=== PATIENT | male | born 1980 | race Caucasian/White ===

== ENCOUNTER 2016-08-25 13:30 | Emergency (ER) | payer OTHER ==
[2016-08-25] MEDS ORDERED: IBUPROFEN 600 MG TABLET PO STA (14:07)
[2016-08-25] MEDS ORDERED: ACETAMINOPHEN 325 MG TABLET PO STA (14:08)
[2016-08-25] MEDS ORDERED: ACETAMINOPHEN 325 MG TABLET PO ONE (14:09)
[2016-08-25] MEDS ORDERED: IBUPROFEN 600 MG TABLET PO ONE (14:09)
== END 2016-08-25 15:04 | disposition home or self-care (01) ==
DX: S06.0X0A Concussion without loss of consciousness, initial encounter (principal); V43.52XA Car driver injured in collision with other type car in traffic accident, initial encounter; G43.909 Migraine, unspecified, not intractable, without status migrainosus; F17.200 Nicotine dependence, unspecified, uncomplicated
CPT/HCPCS: 70450; 99283; 99284; A9270

== ENCOUNTER 2018-06-20 12:52 | Outpatient (CLI) | payer OTHER | END 2018-06-20 12:53 | disposition home or self-care (01) | LOC: SC 12:52 | PROVIDERS: ATTEND Internal Medicine Pulmonary Disease | DX: G47.10 Hypersomnia, unspecified (principal); R41.89 Other symptoms and signs involving cognitive functions and awareness; R51 Headache; R06.83 Snoring; F51.3 Sleepwalking [somnambulism] | CPT/HCPCS: 99203; 99212 ==

== ENCOUNTER 2018-07-14 20:29 | Outpatient (CLI) | payer OTHER | END 2018-07-14 20:30 | disposition home or self-care (01) | LOC: SC 20:29 | PROVIDERS: ATTEND Internal Medicine Pulmonary Disease | DX: G47.33 Obstructive sleep apnea (adult) (pediatric) (principal) | CPT/HCPCS: 95810 ==

== ENCOUNTER 2018-08-24 12:46 | Outpatient (CLI) | payer OTHER | END 2018-08-24 12:47 | disposition home or self-care (01) | LOC: SC 12:46 | PROVIDERS: ATTEND Nurse Practitioner Family | DX: G47.33 Obstructive sleep apnea (adult) (pediatric) (principal) | CPT/HCPCS: 99212; 99214 ==

== ENCOUNTER 2018-11-28 09:56 | Outpatient (CLI) | payer OTHER | END 2018-11-28 09:57 | disposition home or self-care (01) | LOC: SC 09:56 | PROVIDERS: ATTEND Nurse Practitioner Family | DX: G47.33 Obstructive sleep apnea (adult) (pediatric) (principal) | CPT/HCPCS: 99212; 99215 ==

== ENCOUNTER 2018-11-30 11:57 | Outpatient (CLI) | payer OTHER ==
[2018-11-30] MEDS ORDERED: IOTHALAMATE MEGLUMINE 50 ML VIAL ONE (12:09)
[2018-11-30] MEDS ORDERED: BUFFERED LIDOCAINE 10 ML SYRINGE ONE (12:09)
[2018-11-30] MEDS ORDERED: GADOPENTETATE DIMEGLUMINE 5 ML VIAL IVP ONE ×3 (12:09→14:58)
--- NOTE | 2018-11-30 14:55 | XRAY Report ---
Reason: OTHER INSTABILITY,RIGHT SHOULDER Procedure Date: 11/30/2018 Accession Number: [id number] / [id number] Procedure: FL - Arthrogram Needle Placement CPT Code: FULL RESULT: EXAM: RIGHT SHOULDER ARTHROGRAPHIC INJECTION WITH FLUOROSCOPIC GUIDANCE EXAM DATE: 11/30/2018 01:20 PM. CLINICAL HISTORY: Pain and INSTABILITY,RIGHT SHOULDER. History of prior surgery COMPARISON: None. TECHNIQUE: The risks, benefits, and alternatives of the procedure were discussed with the patient. All questions were answered. Written and verbal consent were obtained. The right glenohumeral joint was marked under fluoroscopy and prepped and draped in a sterile manner. Local anesthesia was performed with 1% lidocaine. A 22-gauge needle was then inserted into the glenohumeral joint. 10 mL of a dilute gadolinium solution was then injected. The needle was removed without immediate complication. Other: None. Fluoroscopy Time: 52 seconds . Number of Images: 3. FINDINGS: Bones and joints: No fracture or subluxation. Soft tissue calcification superior to the humeral head is consistent with calcific tendinitis. Injection: Fluoroscopic images demonstrate needle placement and contrast in the glenohumeral joint. No contrast extravasation outside of the glenohumeral joint. IMPRESSION: Successful fluoroscopically guided arthrographic injection of the right shoulder. RADIA
[2018-11-30] MEDS ORDERED: BUFFERED LIDOCAINE 10 ML SYRINGE IU ONE (14:58)
--- NOTE | 2018-12-04 16:57 | MRI Report ---
Reason: OTHER INSTABILITY,RIGHT SHOULDER Procedure Date: 11/30/2018 Accession Number: [id number] / [id number] Procedure: MRI - Arthrogram Shoulder RT CPT Code: FULL RESULT: EXAM: RIGHT SHOULDER MRI ARTHROGRAM WITH CONTRAST EXAM DATE: 11/30/2018 01:51 PM. CLINICAL HISTORY: Shoulder pain and limited range of motion after fall. History of shoulder surgery 10 years ago. COMPARISON: None. TECHNIQUE: Multiplanar, multisequence T1-weighted and fluid-sensitive sequences of the shoulder after an arthrographic injection of dilute gadolinium, dictated under a separate exam. Other: None. FINDINGS: Acromioclavicular Region: The acromion is type II. Acromioplasty has been performed. The acromioclavicular joint is unremarkable. The coracoacromial and coracoclavicular ligaments are intact. Contrast is present in the subacromial/subdeltoid bursa reflecting full-thickness tear of the supraspinatus tendon which will be discussed below. Glenohumeral Region: No subluxation. There is moderate glenohumeral synovitis which is most apparent in the axillary recess. No apparent articular body. The articular cartilage is unremarkable. No capsular thickening or tear. Bone Marrow: Suture anchors are present in the anterior glenoid consistent with sequela of labral repair. The medial extent of the inferior most of the 3 anchors projects slightly beyond the anterior cortex of the anterior glenoid, which may be its expected position. No fracture. No bony lesion. Labrum: The anterior-inferior labrum is diminutive, potentially sequela of old labral injury; however, there appears to be extension of low signal tissue which is contiguous with the inferior labrum laterally from the inferior labrum suspicious for displaced labral tissue which originates from the anterior-inferior labrum. This is best seen on the sagittal images on series 901 images 6 and 7 and series 701 image 11. This is suspicious for residual or recurrent anterior-inferior labral tear. The remainder of the labrum is intact. Biceps Tendon: The long head of the biceps tendon and biceps era are intact. Musculature/Rotator Cuff: There is a full-thickness tear of the distal and anterior supraspinatus at the greater tuberosity insertion. Further posteriorly there is partial thickness articular surface tearing of the distal tendon but no further full-thickness tear. The full-thickness component of the tear involves the anterior approximately 15-20% of the tendon. The infraspinatus is intact. The teres minor is intact. The subscapularis is intact. No rotator cuff muscle belly atrophy or edema. Other: The subcutaneous tissues are unremarkable. IMPRESSION: 1. Small full-thickness tear at the insertion of the distal and anterior supraspinatus on the greater tuberosity with partial thickness articular surface tearing of the distal supraspinatus tendon further posteriorly. The remainder of the rotator cuff is intact. 2. Postsurgical changes of labral repair. The anterior-inferior labrum is diminutive, and there is extension of low signal tissue laterally and inferiorly from the inferior labrum which may reflect displaced labral tissue due to residual or recurrent anterior-inferior labral tear. The remainder of the labrum is unremarkable. 3. Moderate glenohumeral synovitis. RADIA
== END 2018-11-30 11:58 | disposition home or self-care (01) ==
LOC: DI 11:57
PROVIDERS: ATTEND Orthopaedic Surgery
DX: M25.311 Other instability, right shoulder (principal); M75.101 Unspecified rotator cuff tear or rupture of right shoulder, not specified as traumatic; M65.811 Other synovitis and tenosynovitis, right shoulder
CPT/HCPCS: 23350; 73222; 77002; Q9961

== ENCOUNTER 2019-01-25 08:22 | Outpatient (CLI) | payer OTHER ==
[2019-01-25 09:48] VITALS: BP 96/60
--- NOTE | 2019-01-25 09:48 | SLEEP CARE CONSULTATION ---
Information from patient questionnaire entered by Delfina Lal. I have reviewed and concur with the information entered by Delfina Lal. This document represents the service I personally performed and the decisions made by me, Marisela Aviles, RN, MSN, [employer]. History of Present Illness Previous diagnosis: Mild, Obstructive Sleep Apnea-Hypopnea Syndrome AHI: 7.6 Reason for CPAP/BiPAP follow up: one month Equipment type: CPAP Equipment obtained from: [employer] Mask style: Nasal (Dreamwear nasal cushion) Mask brand: Respironics Backup mask available: Yes (full face mask) Last cushion change: a couple days ago HPI additional information: Review of last visit notes, the new mask and pressure adjustment made CPAP much easier to use through the night. He did not need the chinstrap ordered. The condensation is resolved with adjustments. CPAP Compliance Data - Data Reviewed with Patient Average duration of nightly device use: 5.5 Compliance rate %: 66.7 Current pressure setting (cmH2O): 8 Humidity settin Heated hose settin Average residual AHI: 2.2 Average large leak: 25 secs Subjective Missed days of use due to: reports: travel (due to lack of access to device where staying), other ( DET and not accessible to use. ) Patient concerns: denies: aerophagia, mask discomfort, air blowing in eyes, mask leak noise, condensation in mask/hose, nasal congestion, dry mouth, nose, thro at, epistaxis Observed to snore while using device: No Current pressure setting perceived as: comfortable On therapy, patient: reports: sleeping better, awakening more refreshed, being more awake and alert during the day, more rested overall. denies: drowsiness while driving Initial [place] Sleepiness Scale score: 13 Current [place] Sleepiness Scale score: 7 Allergies and Home Medications Known drug allergies: Yes (iodine contrast dye) Home medication list reviewed: Yes Allergy and home medication list: unknown medication for Gerd daily Review of Systems Review of systems same as previous: No (Surgery planned for right shoulder 02-10-19) Physical Exam Blood Pressure: 96/60 (no fluids yet today) Cuff size: long Heart Rate: 66 (apical regular) O2 Saturation: 96 Height: 5 ft 7.5 in Weight (kg): 88.088 kg (with boots and fatigues) Weight change since last visit: 2 pounds gained after vacation Body Mass Index: 29.9 BMI Classification: Overweight Impression and Plan 1. Obstructive Sleep Apnea-Hypopnea Syndrome, mild, with better treatment compliance and good apnea control. On CPAP therapy, the patient has better sleep quality and is more rested overall. He has improved his compliance from 36.7% to 66.7%. The pressure change and new mask style are much more comfortable to use but he had reduced use with travel both for vacation and DET. He can use the full face mask given at set up if nasal congestion. Patient met insurance compliance goals from 11-28-18 to 12-27-18 with 86.7% complaince of more than 4 hours of sleep a night. Patient is also advised to use CPAP not just for compliance goals but with all sleep for maximum benefit of treatment and to get sufficient sleep of minimum of 7 hours. Most people require 7-9 hours of sleep for optimal mental and physical function. Less than 6 hours of sleep consistently will increase health risks. He does feel more rested when he gets more sleep. For planned surgery next month, he is advised to take his CPAP for use in recovery and any sleep if stays over. For supply questions, I gave him a copy of supply replacement schedule and advised to change mask cushion regularly to maintain seal and comfort. Patient's apnea severity and rationale for treatment to reduce apnea, improve sleep quality and reduce cardiovascular and cerebrovascular events was reviewed. I also reviewed the benefit of consistent device use of CPAP for hypertension, gastric reflux. Patient also advised of the importance of adequate hydration to his blood pressure which was low normal range today and to start the day with a full glass of water before his coffee which is a diuretic. * Continue CPAP pressure at 8cmH2O * Use CPAP with all sleep. * Obtain more sleep. * Take CPAP to surgery. * Increase morning fluids * Notify me if snoring with mask or feeling that the pressure is too much or too little * Attempt to lose weight * Return for follow up in 3 months , or sooner if concerns arise I spent 100% of this 30 minute visit face to face with the patient with greater than 50% of this was spent time counseling the patient and coordination of care.
== END 2019-01-25 08:23 | disposition home or self-care (01) ==
LOC: SC 08:22
PROVIDERS: ATTEND Nurse Practitioner Family
DX: G47.33 Obstructive sleep apnea (adult) (pediatric) (principal)
CPT/HCPCS: 99212; 99214

== ENCOUNTER 2019-03-10 06:09 | Day surgery (SDC) | payer OTHER ==
[2019-03-10] MEDS ORDERED: cefTRIAXone 2 GM VIAL ONE (06:32)
--- NOTE | 2019-03-10 07:12 | ANESTHESIA ---
Pre-Anesthesia VS, & Labs - Diagnosis right shoulder rotator cuff tear, - Procedure Shoulder Arthroscopy, Rotator cuff repair Vital Signs: Temp Pulse Resp BP Pulse Ox 37.6 C H 80 16 110/81 H 96 03/10/19 06:41 03/10/19 06:41 03/10/19 06:41 03/10/19 06:41 03/10/19 06:41 Height 5 ft 8 in Weight (kg) 81.19 kg Body Mass Index 27.3 - NPO >8 hours Home Medications and Allergies Home Medications: Ambulatory Orders Rabeprazole Sodium [Aciphex] 20 mg PO 02/28/19 Rabeprazole Sodium [Aciphex] 20 mg PO 02/28/19 Allergies/Adverse Reactions: Allergies Allergy/AdvReac Type Severity Reaction Status Date / Time cat dander Allergy Respiratory Verified 03/10/19 07:13 iodine Allergy Rash Verified 03/10/19 06:51 shellfish derived Allergy Hives Verified 02/28/19 15:27 Anes History & Medical History - Anesthetic History Anesthesia Complications: reports: No previous complications - Medical History Cardiovascular: reports: None Pulmonary: reports: None Gastrointestinal: reports: GERD Urinary: reports: None Musculoskeletal: reports: Other Endocrine/Autoimmune: reports: None Skin: reports: None Smoking Status: Former smoker (quit one month ago) - Surgical History Orthopedic: Shoulder arthroplasty Exam General: Alert Dental: WNL Mouth Opening: Greater than 4 Fingerbreadths Mallampati classification: III Thyromental Distance: greater than 6 cm Respiratory: Lungs clear Cardiovascular: Regular rate, Normal S1, Normal S2 Mental/Cognitive Status: Alert/Oriented X3 Plan Anesthesia Type: General, Interscalene Block Consent for Procedure(s) Verified and Reviewed: Yes Code Status: Attempt Resuscitation ASA classification: 2-Mild systemic disease Is this case an emergency?: No
[2019-03-10] MEDS ORDERED: LACTATED RINGERS 1,000 ML IV ONE ×2 (07:20→12:50)
[2019-03-10] MEDS ORDERED: fentaNYL 250 MCG/5 ML VIAL IVP ONE (07:30)
[2019-03-10] MEDS ORDERED: PROPOFOL 200 MG/20 ML VIAL IVP ONE (07:30)
[2019-03-10] MEDS ORDERED: ACETAMINOPHEN 1,000 MG/100 ML 100 ML IV ONE (07:30)
[2019-03-10] MEDS ORDERED: MIDAZOLAM 2 MG/2 ML VIAL IVP ONE (07:30)
[2019-03-10] MEDS ORDERED: fentaNYL 100 MCG/2 ML VIAL IVP ONE (07:30)
[2019-03-10] MEDS ORDERED: ROCURONIUM 50 MG/5 ML VIAL IVP ONE (07:30)
[2019-03-10] MEDS ORDERED: DEXAMETHASONE 4 MG/ML VIAL IVP ONE (07:30)
[2019-03-10] MEDS ORDERED: EPINEPHrine 1 MG/ML AMP ONE (08:10)
[2019-03-10] MEDS ORDERED: EPINEPHrine 1 MG/ML AMP IR ONE (08:20)
[2019-03-10] MEDS ORDERED: ONDANSETRON 4 MG/2 ML VIAL IVP ONE (12:00)
[2019-03-10] MEDS ORDERED: KETOROLAC 30 MG/ML VIAL IVP ONE (12:00)
--- NOTE | 2019-03-10 13:14 | OPERATIVE REPORT ---
Operative Report - Other Other Information/Narrative: Date of Surgery: 10 March 2019 Pre-Op Diagnosis: Right shoulder instability. Right shoulder ALPSA lesion. Right shoulder supraspinatus tear. Right shoulder biceps tendinitis. Procedures: -Right shoulder arthroscopic labral repair with capsulorrhaphy (Bankart Repair) -Right shoulder mini open rotator cuff repair (Double row subraspinatus) -Right shoulder mini open biceps tenodesis Postop Diagnosis: Same Primary Surgeon: Prateek Stewart Secondary Surgeon: Lorenzo Montesinos Complications: None EBL: 50 cc IMPLANTS: Arthrex knotless suture tack x4 Arthrex corkscrew x2 Arthrex swivel lock x2 Arthrex fiber tack x1 POSTOPERATIVE PLAN: 0-2 weeks-Sling at all times. Pendulum exercises 5 times per day. 2-6 weeks-Passive range of motion with the following limits: FF to 120, ER to 30, abduction to 90 6-12 weeks-Active range of motion in all planes without limitation. No strengthening 12-16 weeks-Gradual strengthening 16 weeks and beyond-gradually introduce dynamic activities EXAMINATION UNDER ANESTHESIA: ROM: Full Anterior load and shift: Grade 2 instability Posterior load and shift: Normal Inferior sulcus: Negative ARTHROSCOPIC FINDINGS: Rotator interval: Injected synovium Biceps tendon & SLAP: Frayed biceps insertion with tendinopathy. Echo synovitis was seen in the groove Subscapularis: Intact Rotator Cuff: Near full-thickness supraspinatus tear that was completed and repaired. Infraspinatus intact. There was calcifications in the supraspinatus that were removed. HAGL: Normal Labrum: ALPSA lesion that was chronic and healed to the medial glenoid. There is a small ossified portion of the labrum at 5:00 which was mobilized and repaired as well Glenoid Cartilage: Grade 1 changes with some grade 2 Humeral Head Cartilage: Normal Loose bodies: I look for loose bodies in the subscapularis recess and inferiorly but I was unable to find any. INDICATION FOR SURGERY: 38-year-old male who met a shoulder dislocation 10 years ago that was repaired with 2 anchors at 3:00 and 2:00 on the glenoid. He reports a relatively normal shoulder function in the interval 10 years until he dislocated after a fall at [employer]. On imaging there was a chronic appearing labral tear with medialization of the capsule as well as a rotator cuff tear in the supraspinatus with calcifications. He was indicated for surgery to restore stability and treat his full-thickness rotator cuff tear. He additionally had biceps tendon symptoms. Nonoperative managment failed to resolve symptoms. The risks, benefits, and alternatives were discussed. Risks included pain, bleeding, infection, damage to nearby structures, lack of symptom relief, implant complications, stiffness, need for further surgeries, DVT, PE, stroke, and even . He signed a written consent form. PROCEDURE IN DETAIL: The patient was met in the preoperative holding on the day of the procedure. Operative extremity was signed. Consent was verified. He desired to proceed. Regional anesthesia was obtained in the preoperative area. They were brought to the operating room and surrendered to anesthesia. Once general anesthesia was obtained they were placed in the lateral decubitus position with the operative side up. An axillary roll was placed and all bony prominences were well-padded. They were then prepped and draped in the standard sterile fashion. A surgical timeout was held to confirm the patient procedure, identity, procedure, laterality, allergies, images, and antibiotics. All were in agreement we proceeded. Balanced suspension was applied and a standard diagnostic arthroscopy was performed utilizing posterior and anterior superior portal sites. The anterior superior portal site was created under direct visualization. The findings of the diagnostic arthroscopy can be found above. A mid glenoid portal was then created under direct visualization bordering the subscapularis tendon. I then used a combination of high and low angled elevators to free the medialized and healed capsular tissue off of the glenoid until subscapularis muscle fibers could be seen. There is a small ossified portion of the labrum around 5:00 and this was freed. The labrum and capsule was freed from 5:00 up until the sub- labral foramen at the level of subscapularis.. I then used to the pineapple rasp to finalize my release and abraded the bone to a bleeding bed. A sucker shaver was placed in the interval to debride any loose tissue and further abrade the glenoid neck. Any loose cartilage was debrided at that time. I then established a percutaneous 7:00 portal utilizing the Arthrex system. I then placed an anchor at the 6 o'clock position on the border of the glenoid. In the process of passing the sutures the anchor was found to be defective and another anchor was placed slightly more on the clock face at the 6 o'clock position without issue. The suture was passed using an appropriate 45 degree suture lasso. The labrum was secured using knotless technique. Appropriate tension was confirmed with a probe and the excess suture was cut. Using the same technique additional anchors were placed at 5:00, 4:00, and 3:00 positions. The 3:00 anchor was at the same level of his prior most inferior anchor. Proper capsular tension was restored and a labral bumper was recreated. Balanced suspension was then released and final images were taken showing the humeral head centered in the glenoid. I then removed lateral traction on the arm and abducted it more fully and this opened up the view towards the rotator cuff. From inside the joint I then placed a spinal needle in the anterolateral portal site and I did identified the near complete thickness tear. I then brought an 11 blade in through that incision and completed the tear directly off the bone. A shaver was then used to take the final fibers off from the anterior and posterior borders. I took care to keep the infraspinatus intact. The instruments and cannula were then removed from the glenohumeral joint. The scope trocar was placed in the posterior portal and the acromion was felt. It was then inserted just under the acromion scraping along the bone until the CA ligament was felt. The scope trocar was then brought just lateral to the CA ligament and out the anterior incision. The cannula was then brought over the scope trocar arthroscope were inserted. The arthroscope was backed up until the shaver and arthroscope in the subacromial space. I then systemically debrided the bursa using a sucker shaver and radiofrequency ablation wand. An anterolateral incision was made and the bursectomy and decompression was completed through the lateral incision. All soft tissue was debrided from the underside of the acromion and the posterior edge of the CA ligament was lifted. Care was taken to keep the deltoid fascia intact. The rotator cuff tear was the n better visualized. Calcifications were found on the edge of the tear and these were removed with a shaver, biter, and grasper. Satisfied with my preparation of the cuff I then moved to the open portion of the case The anterolateral portal site was extended superiorly and inferiorly stopping 5 cm distal to the acromion edge. The deltoid fascia was identified and split in line with its fibers. The deep deltoid fascia was also split retractors were placed. Bursectomy was then completed. I identified the cuff tear and visualize mobilization using a cuff grasper, it easily reduced to the footprint. I then prepared the footprint with a rasp and rondure ensuring to take off all rough edges and soft tissue. At bed of bleeding bone was then seen. I then placed 2 swivel lock anchors just off the articular margin at man's angle. Scorpion was then used to sequentially pass the 8 sutures from front to back with a good, even spread. I then pulled on the sutures to reduce the cuff and noted that there was a small dog ear posteriorly. Sutures were then tied from anterior to posterior and the cuff reduced nicely. A fiber link was placed into the posterior dog ear. I then took one suture from each not and passed them into a swivel lock anchor for the lateral row. The lateral row was placed 1 cm beyond the cuff tissue. Each suture was tightened individually prior to placing the anchors and excellent compression was found with complete reduction of the dog ear. I internally and externally rotated the arm and found the cuff to be very well fixed. I then irrigated this wound and closed the superficial deltoid fascia with 0 Vicryl in the dermis with 2-0 Vicryl. A 5 cm incision was made near the axillary fold centered over the pectoralis major tendon. Electrocautery was used to obtain hemostasis. The fascia was opened with dissection scissors. Blunt digital dissection was used to identify the intertubercular groove just under the pectoralis major tendon. The long head of the biceps tendon was visualized within this interval. The short head of the biceps was retracted with my finger and the right angle was used to deliver the tendon of the long head of the biceps out of the wound. A ascencio elevator was then used to debride all synovial tissue from the intertubercular groove. A fibertack was placed high within the groove. Both limbs of the fibertack were pulled on and it was well fixed. I then whipstitched the biceps tendon starting 2 cm proximal to the musculotendinous junction down to the musculotendinous junction and back up to the same 2 cm location with a single limb of the suture tack. The other suture was placed once through the tendon at the 2 cm location. I then cut all excess tendon off. The suture limb that was passed the single time was then pulled on and this reduced the tendon nicely into the groove. The elbow was fully straightened and there was no excess tension on the repair site. I then tied 7 reverse half hitches alternating to secure the tendon in its place. The wound was then irrigated copiously. And closed with 2-0 Vicryl in the dermis and running Monocryl in the skin The incisions and portal sites were then closed with 3-0 Monocryl buried. Mastisol and Steri-Strips were applied. A sterile dressing and a sling was applied. He was awakened and transferred to the recovery room.
[2019-03-10 14:47] VITALS: BP 121/74
== END 2019-03-10 06:10 | disposition home or self-care (01) ==
LOC: SDS 06:09
PROVIDERS: ATTEND Orthopaedic Surgery
PROC: 0LQ10ZZ Repair Right Shoulder Tendon, Open Approach (ICD-10-PCS; 2019-03-10)
PROC: 0RHJ04Z Insertion of Internal Fixation Device into Right Shoulder Joint, Open Approach (ICD-10-PCS; 2019-03-10)
PROC: 0LS10ZZ Reposition Right Shoulder Tendon, Open Approach (ICD-10-PCS; 2019-03-10)
PROC: 0RQJ4ZZ Repair Right Shoulder Joint, Percutaneous Endoscopic Approach (ICD-10-PCS; principal; 2019-03-10 07:30)
DX: S46.011A Strain of muscle(s) and tendon(s) of the rotator cuff of right shoulder, initial encounter (principal); M75.21 Bicipital tendinitis, right shoulder; M25.311 Other instability, right shoulder; S43.491A Other sprain of right shoulder joint, initial encounter; Z87.891 Personal history of nicotine dependence
CPT/HCPCS: 23410; 23430; 29806; C1713; J0131; J3010; J7120

== ENCOUNTER 2019-07-04 09:11 | Outpatient (CLI) | payer OTHER ==
[2019-07-04 10:10] VITALS: BP 114/76
--- NOTE | 2019-07-04 10:10 | SLEEP CARE CONSULTATION ---
Information from patient questionnaire entered by Bernice Graf. I have reviewed and concur with the information entered by Bernice Graf. This document represents the service I personally performed and the decisions made by me, Marisela Aviles, RN, MSN, [employer]. History of Present Illness Previous diagnosis: Mild, Obstructive Sleep Apnea-Hypopnea Syndrome AHI: 7.6 Reason for follow up: other (2 month) Equipment type: CPAP Equipment obtained from: [employer] Mask style: Nasal pillows Backup mask available: Yes Last cushion change: 2 weeks ago Prior sleep studies: Yes HPI additional information: He feels he is using CPAP more and longer periods. If runs out of water, he will take off. He took CPAP into recliner area as advised. Nasal congestion was reduced with increase in humidity. He did not use the saline nasal spray or steamy shower before bed. CPAP Compliance Data - Data Reviewed with Patient Average duration of nightly device use: 6h 22m Compliance rate %: 71.7 Current pressure setting (cmH2O): 8 Humidity settin Heated hose settin Average residual AHI: 2.4 Average large leak: 16s Subjective Missed days of use due to: reports: travel (to [place] ), other (falling asleep without CPAP ) Patient concerns: reports: dry mouth, nose, throat (occasionally when water runs out), other. denies: aerophagia, mask discomfort, air blowing in eyes, mask leak noise, condensation in mask/hose, nasal congestion Observed to snore while using device: No Current pressure setting perceived as: comfortable On therapy, patient: reports: sleeping better, awakening more refreshed, being more awake and alert during the day, more rested overall. denies: drowsiness while driving Initial [place] Sleepiness Scale score: 13 Current [place] Sleepiness Scale score: 8 Allergies and Home Medications Known drug allergies: Yes (iodine, shellfish, cat dander) Home medication list reviewed: Yes (started Chantex to quit smoking with reduction noted) Allergy and home medication list: omeprazole 20mg Chantex daily Review of Systems Review of systems same as previous: Yes Physical Exam Blood Pressure: 114/76 Heart Rate: 86 O2 Saturation: 96 Height: 5 ft 8 in Weight: 201 lb 3.2 oz Weight change since last visit: gained 4 pounds Body Mass Index: 30.6 BMI Classification: Obesity Class 1 Impression and Plan 1. Obstructive Sleep Apnea-Hypopnea Syndrome, mild , with good treatment compliance and good apnea control. On CPAP therapy, the patient has better sleep quality and is more rested overall. Patient has increased sleep length by 1 hour and 15 minutes on average. He is more rested with more sleep. To prevent falling asleep on couch, I asked him how he could reduce this occurrence and he responded going to bed earlier. He could also set a bedtime alarm on his phone to remind him to go to bed if awake or if asleep. He is also advised to empty and fill reservoir daily when brushes teeth in morning and nighttime to incorporate better in routine. He is encouraged to take on tournaments to keep consistent use of CPAP in habit as well as have benefit of treatment. Patient has gained weight. Currently patients BMI is 30.1 obesity class . Obesity increases the risk of apnea, CPAP pressure requirements and overall health risks especially cardiovascular and diabetes. Thus patient is advised to lose weight. Weight loss can be done with reducing portion size, refined foods and balancing content with vegetables, fruit and protein. A diet consultation can be helpful in achieving optimal weight loss goals. The BMI chart was reviewed. The patient would like to reduce to 30 pounds bringing their BMI down to 27. 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 His goal is to reduce weight by PRT in 10 weeks. The patient's CPAP pressure was changed to autoCPAP at 7-8 cmH2O to accommodate for future weight loss. Symptoms to report for additional pressure adjustment discussed.Patient's apnea severity and rationale for treatment to reduce apnea, improve sleep quality and reduce cardiovascular and cerebrovascular events was reviewed. I also reviewed the benefit of consistent device use of CPAP for hypertension, gastric reflux. * * Change CPAP pressure to 7-8 cmH2O * Notify me if snoring with mask or feeling that the pressure is too much or too little * Attempt to lose weight * Call this office if any problems using CPAP * Return for follow up in 6 months , or sooner if concerns arise Time Spent with Patient (minutes): 30 I spent 100% of this visit face to face with the patient with greater than 50% of this was spent time counseling the patient and coordination of care.
== END 2019-07-04 09:12 ==
LOC: SC 09:11
PROVIDERS: ATTEND Nurse Practitioner Family
DX: G47.33 Obstructive sleep apnea (adult) (pediatric) (principal); E66.9 Obesity, unspecified; Z68.30 Body mass index [BMI] 30.0-30.9, adult
CPT/HCPCS: 99212; 99214

== ENCOUNTER 2020-04-04 13:06 | Emergency (ER) | payer OTHER ==
--- NOTE | 2020-04-04 13:31 | ED Physician Documentation ---
PD HPI FOCAL NEURO - Stated complaint Stated Complaint: NUMB HANDS, BLURRED VISION - Chief complaint Chief Complaint: Neuro - History obtained from History obtained from: Patient - History of Present Illness Timing - onset: How many weeks ago (3) Timing - duration: Weeks (3) Timing - details: Gradual onset, Still present, Waxing and waning Severity of deficit: Moderate Weakness: No: Face, Arm, Leg Numbness: Face, Arm, Hand, Leg, Right, Left Associated symptoms: Headache (having pressure feeling in head but not a "headache". He used to have migraines and states vision and head pressure feel similar to migraine complex without the headache component. Has been to PCP about it with use of NSAIDs and also getting Neuro referral. Has Neuro appt for next Wednesday (5 days)) Contributing factors: negative: Anticoagulated, Atrial fibrillation Baseline status: positive: A&OX3, ambulatory, indep Similar symptoms before: Has not had sx before Recently seen: Clinic ([facility]) Review of Systems Constitutional: denies: Fever, Chills, Myalgias Eyes: reports: Decreased vision, Photophobia. denies: Loss of vision Nose: denies: Rhinorrhea / runny nose, Congestion Throat: denies: Sore throat Cardiac: denies: Chest pain / pressure, Palpitations Respiratory: denies: Dyspnea, Cough GI: reports: Nausea. denies: Abdominal Pain, Vomiting, Diarrhea Neurologic: reports: Numbness, Headache (pressure). denies: Generalized weakness, Focal weakness, Difficulty speaking (but says he is slow thinking at times.), Near syncope Psychiatric: denies: Depressed, Anxiety PD PAST MEDICAL HISTORY - Past Medical History Cardiovascular: None Respiratory: None Neuro: None Endocrine/Autoimmune: None GI: GERD : None HEENT: None Psych: None Musculoskeletal: Other Derm: None - Past Surgical History Past Surgical History: Yes Ortho: Shoulder arthroplasty - Present Medications Home Medications: Ambulatory Orders Medication Instructions Recorded Confirmed Ibuprofen 800 mg PO TID #20 tablet 08/25/16 Rabeprazole Sodium [Aciphex] 20 mg PO 02/28/19 Azithromycin [Zithromax] 0 mg PO DAILY #6 tablet 08/02/19 Amitriptyline [Elavil] 25 mg PO HS #20 tablet 04/04/20 Aspirin Chewable [[place] Andrew 81 mg PO DAILY #20 tablet 04/04/20 Aspirin] dexAMETHasone [Decadron] 4 mg PO DAILY #5 tablet 04/04/20 - Allergies Allergies/Adverse Reactions: Allergies Allergy/AdvReac Type Severity Reaction Status Date / Time cat dander Allergy Respiratory Verified 04/04/20 13:20 iodine Allergy Rash Verified 04/04/20 13:20 shellfish derived Allergy Hives Verified 04/04/20 13:20 - Social History Does the pt smoke?: Yes Smoking Status: Former smoker Does the pt drink ETOH?: Yes Does the pt have substance abuse?: No - Immunizations Immunizations are current?: Yes PD ED PE NORMAL - Vitals Vital signs reviewed: Yes - General General: Alert and oriented X 3, No acute distress (appears somewhat anxious about the symptoms. ), Well developed/nourished - HEENT HEENT: PERRL, EOMI, Ears normal, Moist mucous membranes, Pharynx benign - Neck Neck: Supple, no meningeal sign, No adenopathy, No bruit - Cardiac Cardiac: RRR, No murmur - Respiratory Respiratory: Clear bilaterally - Abdomen Abdomen: Soft, Non tender - Derm Derm: Normal color, Warm and dry, No rash - Extremities Extremities: No edema, No calf tenderness / cord - Neuro Neuro: Alert and oriented X 3, No motor deficit, Normal speech, Other (subjectively less sensation to light touch in hand, though has sharp/dull discrimination. ) Results - Vitals Vitals: Vital Signs - 24 hr 04/04/20 04/04/20 04/04/20 13:14 13:49 14:19 Temperature 36.9 C Heart Rate 88 75 73 Respiratory 16 23 17 Rate Blood Pressure 139/91 H 129/108 H 126/104 H O2 Saturation 97 99 97 04/04/20 04/04/20 04/04/20 14:30 15:00 15:30 Temperature Heart Rate 71 68 85 Respiratory 17 22 22 Rate Blood Pressure 125/101 H 129/91 H 115/89 H O2 Saturation 99 99 97 04/04/20 16:00 Temperature 36.6 C Heart Rate 72 Respiratory 16 Rate Blood Pressure 116/81 H O2 Saturation 97 Oxygen O2 Source Room air - Labs Labs: Laboratory Tests 04/04/20 04/04/20 04/04/20 14:23 14:23 14:23 WBC 10.8 RBC 5.15 Hgb 16.1 Hct 47.6 MCV 92.4 MCH 31.3 H MCHC 33.8 RDW 11.8 L Plt Count 310 MPV 10.4 Neut # (Auto) 6.4 Lymph # (Auto) 3.4 Peach # (Auto) 0.7 Eos # (Auto) 0.2 Baso # (Auto) 0.0 Absolute Nucleated RBC 0.00 Nucleated RBC % 0.0 ESR Sodium 141 Potassium 4.1 Chloride 102 Carbon Dioxide 26 Anion Gap 13.0 BUN 12 Creatinine 0.9 Estimated GFR (MDRD) 94 Glucose 84 Calcium 9.7 Magnesium 1.9 Total Bilirubin 0.7 AST 21 ALT 26 Alkaline Phosphatase 75 C-Reactive Protein < 1.0 Total Protein 8.3 H Albumin 4.5 Globulin 3.8 Albumin/Globulin Ratio 1.2 Vitamin B12 402 TSH 1.35 04/04/20 14:43 WBC RBC Hgb Hct MCV MCH MCHC RDW Plt Count MPV Neut # (Auto) Lymph # (Auto) Peach # (Auto) Eos # (Auto) Baso # (Auto) Absolute Nucleated RBC Nucleated RBC % ESR 7 Sodium Potassium Chloride Carbon Dioxide Anion Gap BUN Creatinine Estimated GFR (MDRD) Glucose Calcium Magnesium Total Bilirubin AST ALT Alkaline Phosphatase C-Reactive Protein Total Protein Albumin Globulin Albumin/Globulin Ratio Vitamin B12 TSH - Rads (name of study) head CT Radiology: Prelim report reviewed (no masses, signs of CVA, swelling ), See rad report PD MEDICAL DECISION MAKING - ED course Complexity details: reviewed results (pt allergy to Iodine so declined angio even with pretreatment. Plain head CT normal. Consider MRI but unavaiable at this time. I feel he can see Neuro. Can treat with decadron for potential MS, complex migraine, daily headache, etc.), considered differential (complex migraine (status), MS, tumor/mass, autoimmune, etc.), d/w patient Departure - Departure Disposition: 01 Home, Self Care Clinical Impression: Extremity numbness, Visual impairment Condition: Stable Record reviewed to determine appropriate education?: Yes Follow-Up: Rufino Franz MD [Primary Care Provider] - Prescriptions: dexAMETHasone [Decadron] 4 mg PO DAILY #5 tablet Amitriptyline [Elavil] 25 mg PO HS #20 tablet Aspirin Chewable [[place] Andrew Aspirin] 81 mg PO DAILY #20 tablet Comments: Your head CT appears normal. Your blood tests and inflammatory markers are normal as well. It does not appear to be tumor or obvious stroke or swelling generally. It does not seem to be immune mediated inflammation. Considerations would be functional headache such as migraine with some numbness. Also consider other unusual processes such as MS. Off work until next week when you see the neurologist. For now we will treat with Decadron steroid which would be useful for several of these problems. Also a baby aspirin daily. Amitriptyline 25 mg which is a low-dose nightly to help with the numbness symptoms. Forms: Activity restrictions Discharge Date/Time: 04/04/20 16:23
[2020-04-04] MEDS ORDERED: KETOROLAC 15 MG/ML VIAL IVP STA (14:14)
[2020-04-04] MEDS ORDERED: DEXAMETHASONE 10 MG/ML VIAL IVP STA (14:14)
[2020-04-04] MEDS ORDERED: IOVERSOL 320 100 ML VIAL IVP ONE (14:32)
[2020-04-04] MEDS ORDERED: FAMOTIDINE 20 MG/2 ML SYRINGE IVP STA (14:40)
[2020-04-04] MEDS ORDERED: diphenhydrAMINE INJ 50 MG/ML VIAL IVP STA (14:40)
[2020-04-04 14:45] LABS: BASOPHILS % (AUTO) 0.3 %; EOSINOPHILS # (AUTO) 0.2 10^3/uL (0.0-0.7); EOSINOPHILS % (AUTO) 1.7 %; HGB - HEMOGLOBIN 16.1 g/dL (14.0-18.0); LYMPHOCYTES # (AUTO) 3.4 10^3/uL (1.5-3.5); LYMPHOCYTES % (AUTO) 31.1 %; MEAN CORPUSCULAR HEMOGLOBIN 31.3 pg (27.0-31.0); MEAN CORPUSCULAR HGB CONC 33.8 g/dL (32.0-36.0); MEAN CORPUSCULAR VOLUME 92.4 fL (80.0-94.0); MEAN PLATELET VOLUME 10.4 fL (7.4-11.4); MONOCYTES # (AUTO) 0.7 10^3/uL (0.0-1.0); MONOCYTES % (AUTO) 6.9 %; NEUTROPHILS # (AUTO) 6.4 10^3/uL (1.5-6.6); NEUTROPHILS % (AUTO) 59.5 %; PLT - PLATELET COUNT 310 10^3/uL (130-450); RED BLOOD COUNT 5.15 10^6/uL (4.70-6.10); RED CELL DISTRIBUTION WIDTH 11.8 % (12.0-15.0); WHITE BLOOD COUNT 10.8 x10^3/uL (4.8-10.8)
[2020-04-04 15:04] LABS: ALBUMIN 4.5 g/dL (3.2-5.5); ALBUMIN/GLOBULIN RATIO 1.2 (1.0-2.2); ALKALINE PHOSPHATASE 75 IU/L (42-121); ALT ALANINE AMINOTRANSFERASE 26 IU/L (10-60); AST ASPARTATE AMINOTRANSFERASE 21 IU/L (10-42); BILIRUBIN,TOTAL 0.7 mg/dL (0.2-1.0); BUN - BLOOD UREA NITROGEN 12 mg/dL (6-20); CALCIUM 9.7 mg/dL (8.5-10.3); CARBON DIOXIDE - CO2 26 mmol/L (21-32); CHLORIDE 102 mmol/L (101-111); CREATININE 0.9 mg/dL (0.6-1.2); GLUCOSE 84 mg/dL (70-100); MAGNESIUM 1.9 mg/dL (1.7-2.8); SODIUM 141 mmol/L (135-145); TOTAL PROTEIN 8.3 g/dL (6.7-8.2)
[2020-04-04 15:13] LABS: CRP - C-REACTIVE PROTEIN < 1.0 mg/dL (0-1.0)
[2020-04-04 15:16] LABS: THYROID STIMULATING HORMONE 1.35 uIU/mL (0.34-5.60)
--- NOTE | 2020-04-04 15:30 | CT Report ---
PROCEDURE: HEAD WO INDICATIONS: Many week history of arm and left leg numbness. TECHNIQUE: Noncontrast 4.5 mm thick angled axial sections acquired from the foramen magnum to the vertex. For r adiation dose reduction, the following was used: automated exposure control, adjustment of mA and/or kV according to patient size. COMPARISON: 08/25/[address] FINDINGS: Image quality: Excellent. CSF spaces: Basal cisterns are patent. No extra-axial fluid collections. Ventricles are normal in size and shape. Brain: No midline shift. No intracranial masses or hemorrhage. Olsen-white matter interface is norm al. Skull and face: Calvarium and visualized facial bones are intact, without suspicious lesions. Sinuses: Visualized sinuses and mastoids are clear. IMPRESSION: No acute intracranial finding or significant change from the comparison study. Reviewed by: Prasanna Marcano MD on 04/04/2020 3:28 PM PST Approved by: Prasanna Marcano MD on 04/04/2020 3:28 PM PST Station ID: [id number]
[2020-04-04 16:05] VITALS: BP 116/81
== END 2020-04-04 16:23 | disposition home or self-care (01) ==
LOC: ED 13:06
DX: R20.0 Anesthesia of skin (principal); H53.9 Unspecified visual disturbance; R51.9 Headache, unspecified; R11.0 Nausea; Z91.041 Radiographic dye allergy status; Z87.891 Personal history of nicotine dependence
CPT/HCPCS: 36415; 70450; 82607; 83735; 85651; 86140; 96374; 96375; 99284; 99285; J1200; 80053; 84443; 85025

== ENCOUNTER 2020-06-24 08:19 | Emergency (ER) | payer OTHER ==
[2020-06-24 08:26] VITALS: BP 135/87
[2020-06-24] MEDS ORDERED: predniSONE 20 MG TABLET PO STA (08:30)
--- NOTE | 2020-06-24 08:31 | ED Physician Documentation ---
PD HPI SKIN - Stated complaint Stated Complaint: BODY RASH - Chief complaint Chief Complaint: Allergic Rx - History obtained from History obtained from: Patient - Additional information Additional information: Developed hives starting yesterday, started on the left wrist and then went body wide. It is severely itchy despite taking Benadryl. No clear inciting factor. No shortness of breath, body aches, fevers, throat swelling. Review of Systems Constitutional: denies: Fever, Chills, Myalgias Nose: denies: Rhinorrhea / runny nose Throat: denies: Sore throat Respiratory: denies: Dyspnea GI: denies: Nausea PD PAST MEDICAL HISTORY - Past Medical History Cardiovascular: None Respiratory: None Neuro: None Endocrine/Autoimmune: None GI: GERD : None HEENT: None Psych: None Musculoskeletal: Other Derm: None - Past Surgical History Past Surgical History: Yes Ortho: Shoulder arthroplasty - Present Medications Home Medications: Ambulatory Orders Medication Instructions Recorded Confirmed Ibuprofen 800 mg PO TID #20 tablet 08/25/16 Rabeprazole Sodium [Aciphex] 20 mg PO 02/28/19 Azithromycin [Zithromax] 0 mg PO DAILY #6 tablet 08/02/19 Amitriptyline [Elavil] 25 mg PO HS #20 tablet 04/04/20 Aspirin Chewable [[place] Andrew 81 mg PO DAILY #20 tablet 04/04/20 Aspirin] dexAMETHasone [Decadron] 4 mg PO DAILY #5 tablet 04/04/20 Doxepin [SINEquan] 10 mg PO TID PRN #20 capsule 06/24/20 predniSONE [Deltasone] 60 mg PO DAILY 5 Days #15 tablet 06/24/20 - Allergies Allergies/Adverse Reactions: Allergies Allergy/AdvReac Type Severity Reaction Status Date / Time cat dander Allergy Respiratory Verified 06/24/20 08:23 iodine Allergy Rash Verified 06/24/20 08:23 shellfish derived Allergy Hives Verified 06/24/20 08:23 - Social History Does the pt smoke?: Yes Smoking Status: Former smoker Does the pt drink ETOH?: Yes Does the pt have substance abuse?: No - Immunizations Immunizations are current?: Yes PD ED PE NORMAL - Vitals Vital signs reviewed: Yes - General General: Alert and oriented X 3, No acute distress - HEENT HEENT: Pharynx benign - Derm Derm: Other (diffuse and almost confluent urticaria) - Neuro Neuro: Alert and oriented X 3, Normal speech Results - Vitals Vitals: Vital Signs - 24 hr 06/24/20 08:23 Temperature 36.2 C L Heart Rate 77 Respiratory 16 Rate Blood Pressure 135/87 H O2 Saturation 96 Oxygen O2 Source Room air PD MEDICAL DECISION MAKING - ED course ED course: 40-year-old gentleman with hives resistant to treatment with Benadryl. Will start prednisone and doxepin. Departure - Departure Disposition: 01 Home, Self Care Clinical Impression: Urticaria Condition: Good Record reviewed to determine appropriate education?: Yes Instructions: ED Allergic Reaction General Other Prescriptions: predniSONE [Deltasone] 60 mg PO DAILY 5 Days #15 tablet Doxepin [SINEquan] 10 mg PO TID PRN #20 capsule PRN Reason: Itching Comments: If this becomes a chronic recurrent issue, talk with your doctor about a referral to an director pharmaceutical. Do not drink or drive while taking doxepin, it is slightly sedating.
== END 2020-06-24 08:44 | disposition home or self-care (01) ==
LOC: ED 08:19
DX: L50.9 Urticaria, unspecified (principal); Z87.891 Personal history of nicotine dependence
CPT/HCPCS: 99282; 99283; J7512

== ENCOUNTER 2020-08-02 12:46 | Outpatient (CLI) | payer OTHER ==
[2020-08-02 13:17] VITALS: BP 114/72
--- NOTE | 2020-08-02 13:17 | SLEEP CARE CONSULTATION ---
Information from patient questionnaire entered by Delfina Lal. I have reviewed and concur with the information entered by Delfina Lal. This document represents the service I personally performed and the decisions made by , Lisha Rosado ARNP. History of Present Illness Service Date and Time: 08/02/2020 1246 Previous diagnosis: Mild, Obstructive Sleep Apnea-Hypopnea Syndrome AHI: 7.6 (in 2019) Reason for follow up: annual (last seen 07/2019) Equipment type: CPAP [facility] Mask style: Nasal Backup mask available: Yes (old mask) Last cushion change: last night Prior sleep studies: Yes Year and Where: 2019 - [facility] HPI additional information: JAVI MAN was diagnosed to have mild, AHI 7.6, obstructive sleep apnea- hypopnea syndrome and returned todaywith partner for CPAP therapy annual follow- up. CPAP Compliance Data - Data Reviewed with Patient Average duration of nightly device use: 6 hr 14 min Compliance rate %: 65.6 (180 days)(66.7 last 30) Current pressure setting (cmH2O): 7-8 Humidity settin Heated hose settin Average residual AHI: 1.7 Average large leak: 1 sec Subjective Patient concerns: reports: air blowing in eyes, dry mouth, nose, throat. denies: aerophagia, mask discomfort, mask leak noise, condensation in mask/hose, nasal congestion, epistaxis, other Observed to snore while using device: No Current pressure setting perceived as: too low On therapy, patient: reports: sleeping better, awakening more refreshed, being more awake and alert during the day, more rested overall. denies: drowsiness while driving Initial [place] Sleepiness Scale score: 13 (in 2019) Current [place] Sleepiness Scale score: 6 Allergies and Home Medications Home medication list reviewed: Yes (Trazadone, bupropion for smoking cessation) Review of Systems Review of systems same as previous: Yes (no changes) Physical Exam Blood Pressure: 114/72 Cuff size: wrist Heart Rate: 90 O2 Saturation: 96 Height: 5 ft 8 in Weight: 205 lb Body Mass Index: 31.1 BMI Classification: Obese Impression and Plan 1. Obstructive Sleep Apnea-Hypopnea Syndrome, mild, with fair treatment compliance and good apnea control. On CPAP therapy, the patient has better sleep quality and is more rested overall. He has been feeling like the pressure is too low when he puts the mask on, almost smothering feeling. He would like to have the pressure increased. The patients pressure will be changed to autoCPAP 8-10 cmH20 for air hunger. Patient advised to contact me if pressure change is uncomfortable so that it can be adjusted. Goals for apnea control discussed. He has been having some mouth dryness and I advised him to adjust his humidity setting up or heated tubing down to find balance for less oral dryness. Patient's apnea severity and rationale for treatment to reduce apnea, improve sleep quality and reduce cardiovascular and cerebrovascular events was reviewed. I also reviewed the benefit of consistent device use of CPAP for hypertension and gastric reflux. * Change auto CPAP pressure to 8-10 cmH2O * Notify me if snoring with mask or feeling that the pressure is too much or too little * Attempt to lose weight * Call this office if any problems using CPAP * Return for follow up in 1-2 months, or sooner if concerns arise Counseling Topics: Spare mask, Weight loss health impact Visit Type: In Office Time Spent with Patient (minutes): 20 Provider Statement: I spent 100% of the Face to Face Visit with the patient with greater than 50% spent counseling the patient and coordination of care.
== END 2020-08-02 12:47 | disposition home or self-care (01) ==
LOC: SC 12:46
PROVIDERS: ATTEND Nurse Practitioner Family
DX: G47.33 Obstructive sleep apnea (adult) (pediatric) (principal); E66.9 Obesity, unspecified; Z68.31 Body mass index [BMI] 31.0-31.9, adult
CPT/HCPCS: 99212; 99213

== ENCOUNTER 2020-10-04 10:45 | Outpatient (CLI) | payer OTHER ==
--- NOTE | 2020-10-04 11:09 | SLEEP CARE CONSULTATION ---
Information from patient questionnaire entered by Delfina Lal. I have reviewed and concur with the information entered by Delfina Lal. This document represents the service I personally performed and the decisions made by , Lisha Rosado ARNP. History of Present Illness Service Date and Time: 10/04/2020 1045 Previous diagnosis: Mild, Obstructive Sleep Apnea-Hypopnea Syndrome AHI: 7.6 (in 2019) Reason for follow up: other (2 month with pressure change) Equipment type: CPAP Equipment obtained from: [employer] (getting supplies as needed) Mask style: Nasal Backup mask available: Yes (old mask) Last cushion change: last week Prior sleep studies: Yes Year and Where: 2019 - [facility] HPI additional information: JAVI MAN was diagnosed to have mild, AHI 7.6, obstructive sleep apnea- hypopnea syndrome and returned today for CPAP therapy 2 month pressure change follow-up. CPAP Compliance Data - Data Reviewed with Patient Average duration of nightly device use: 6 hr 53 min Compliance rate %: 80 (60 days) Current pressure setting (cmH2O): 8-10 Humidity settin Heated hose settin Average residual AHI: 1.5 Average large leak: 15 sec Subjective Missed days of use due to: reports: travel Patient concerns: denies: aerophagia, mask discomfort, air blowing in eyes, mask leak noise, condensation in mask/hose, nasal congestion, dry mouth, nose, throat, epistaxis, other Observed to snore while using device: No Current pressure setting perceived as: comfortable On therapy, patient: reports: sleeping better, awakening more refreshed, being more awake and alert during the day, more rested overall. denies: drowsiness while driving Initial [place] Sleepiness Scale score: 13 (in 2019) Current [place] Sleepiness Scale score: 6 Allergies and Home Medications Home medication list reviewed: Yes (no changes) Allergy and home medication list: Buproprion Pantoprazole Trazodone Review of Systems Review of systems same as previous: Yes (no changes) Physical Exam Heart Rate: 65 O2 Saturation: 97 Height: 5 ft 8 in Weight: 197 lb Body Mass Index: 29.9 BMI Classification: Overweight Impression and Plan 1. Obstructive Sleep Apnea-Hypopnea Syndrome, mild, with good treatment compliance and good apnea control. On CPAP therapy, the patient has better sleep quality and is more rested overall. He states the pressure change has helped to reduce his air hunger. He has significant improvement of his sleep apnea and is satisfied with his treatment. Patient's apnea severity and rationale for treatment to reduce apnea, improve sleep quality and reduce cardiovascular and cerebrovascular events was reviewed. I also reviewed the benefit of consistent device use of CPAP for hypertension and gastric reflux. * Continue auto CPAP pressure at 8-10 cmH2O * Notify me if snoring with mask or feeling that the pressure is too much or too little * Attempt to lose weight * Call this office if any problems using CPAP * Return for follow up in 1 year, or sooner if concerns arise Counseling Topics: Spare mask, Weight loss health impact Visit Type: In Office Time Spent with Patient (minutes): 12 Provider Statement: I spent 100% of the Face to Face Visit with the patient with greater than 50% spent counseling the patient and coordination of care.
== END 2020-10-04 10:46 | disposition home or self-care (01) ==
LOC: SC 10:45
PROVIDERS: ATTEND Nurse Practitioner Family
DX: G47.33 Obstructive sleep apnea (adult) (pediatric) (principal); E66.3 Overweight; Z68.29 Body mass index [BMI] 29.0-29.9, adult
CPT/HCPCS: 99212